=== PATIENT | female | born 1980 | race Caucasian/White ===

== ENCOUNTER 2021-10-08 10:33 | Emergency (ER) | payer OTHER ==
[~2021-10-08] VITALS: Ht 157.5 cm; Wt 63.5 kg
[2021-10-08 10:38] VITALS: BP 129/95
--- NOTE | 2021-10-08 10:45 | NUR ---
SEEN AND EXAMINEED BY .
[2021-10-08] MEDS ORDERED: DEXAMETHASONE SOD PHOSPHATE 10 MG/ML VIAL ONE (11:00)
[2021-10-08] MEDS ORDERED: DEXAMETHASONE SOD PHOSPHATE 10 MG/ML VIAL IM ONE (11:00)
--- NOTE | 2021-10-08 11:05 | NUR ---
Patient discharged in custody in stable condition. Written and verbal after care instructions given. Patient verbalizes understanding of instruction.
== END 2021-10-08 11:07 ==
LOC: ER 10:43
DX: L50.9 Urticaria, unspecified (principal); Z60.2 Problems related to living alone
CPT/HCPCS: 96372; 99283; J1100